=== PATIENT | female | born 1975 | race Two or more races ===

== ENCOUNTER 2024-06-01 13:00 | Outpatient (RCR) | payer MEDICAID, SELFPAY ==
--- NOTE | 2024-05-18 13:39 | PT.OIERPT ---
PT OP Initial Eval Patient Information Outpatient Physical Therapy Treatment Date: 05/18/24 Visit Reasons: Strain of unspecified muscles Medical Diagnosis: [id number] Treatment Dx #1: L knee pain Start of Care: 05/18/24 Date of Onset: 1 month ago Smoking Status Smoking Status: Never smoker Initial Assessment Subjective: Pt is 48 yr old aust[place]ian speaking female who c/o L LE pain behind the knee and thigh x1 month. She was moving boxes bent over in a lunge position and felt pain in the back of the knee after that. Now the pain limits HH chores such as stairs, mopping and sweeping and twisting the L LE with the foot planted. PMH: HTN, thyroidism, B ankle OA Pt goal: to get rid of the L LE pain Objective: L knee AROM: Flexion: 100 deg Extension: full with pain SLR: 30 deg Strength: Quads: 4-/5 HS: 4-/5 Gait: symmetrical Mainor's: negative Assessment: Pt presents with L knee rotation and extension sensitivity likely due to meniscus irritation. Pt requires skilled therapy in order to meet goals and has fair rehab potential. Short Term and Care Home Goals 1. Ind with HEP 2. Improved strength quads and HS to 4/5 3. Ascend/descend stairs 1 flight without L knee pain 3. Tolerate HH chores x30 mins with <=3/10 L knee pain Treatment Plan ? 1. Manual therapy ? 2. Therex ? 3. Modalities as indicated, moist heat, ice, estim Frequency and Duration: 1-2x a week for 6 sessions plus evaluation Certification Dates: 05/18/24 to 08/16/23 Procedure Charges OP PT Eval Mod Complex 30 minutes: Yes
--- NOTE | 2024-06-01 13:37 | PT.ODAYNRPT ---
PT Outpatient Daily Note OP Daily Note Outpatient Physical Therapy Treatment Date: 06/01/24 Visit Reasons: Strain of unspecified muscles Subjective: Pt reports L knee pain, mentioned she is still working and her job requires to be on her feet for most of her shift. Objective: Please see flow sheet for ther ex list. Assessment: Pt tolerated interventions with minimal pain, applied cold pack. Plan: Continue with POC. Length of Time (minutes) of Treatment: 30 Minutes Procedure Charges Therapeutic Exercise 30 minutes: Yes
== END 2024-06-02 23:59 | disposition home or self-care (01) ==
LOC: CPTX 13:00
PROVIDERS: PCP Family Medicine; Referring Provider Family Medicine; Visit Provider Family Medicine
DX: M25.562 Pain in left knee (principal); S86.912D Strain of unspecified muscle(s) and tendon(s) at lower leg level, left leg, subsequent encounter; X58.XXXD Exposure to other specified factors, subsequent encounter
CPT/HCPCS: 97110; 97162

== ENCOUNTER 2024-06-23 16:30 | Outpatient (RCR) | payer MEDICAID, SELFPAY ==
--- NOTE | 2024-06-08 17:49 | PT.ODAYNRPT ---
PT Outpatient Daily Note OP Daily Note Outpatient Physical Therapy Treatment Date: 06/08/24 Visit Reasons: Strain of unspecified muscles Subjective: Not much change in knee pain since last visit Objective: See F/S for therex Assessment: L knee pain with rotation consistent with meniscus irritation Plan: Continue as tolerated Length of Time (minutes) of Treatment: 30 Minutes Procedure Charges Therapeutic Exercise 30 minutes: Yes
--- NOTE | 2024-06-15 18:04 | PT.ODAYNRPT ---
PT Outpatient Daily Note OP Daily Note Outpatient Physical Therapy Treatment Date: 06/15/24 Visit Reasons: Strain of unspecified muscles Subjective: Not much change in knee pain since last visit Objective: See F/S for therex Assessment: L knee pain with rotation consistent with meniscus irritation Plan: Continue as tolerated Length of Time (minutes) of Treatment: 30 Minutes Procedure Charges Therapeutic Exercise 30 minutes: Yes
--- NOTE | 2024-06-23 17:42 | PT.ODAYNRPT ---
PT Outpatient Daily Note OP Daily Note Outpatient Physical Therapy Treatment Date: 06/23/24 Visit Reasons: Strain of unspecified muscles Subjective: Not much change in knee pain since last visit Objective: See F/S for therex Assessment: L knee pain with rotation consistent with meniscus irritation Plan: Continue as tolerated Length of Time (minutes) of Treatment: 30 Minutes Procedure Charges Therapeutic Exercise 30 minutes: Yes
== END 2024-07-03 23:59 | disposition home or self-care (01) ==
LOC: CPTX 16:30
PROVIDERS: PCP Family Medicine; Referring Provider Family Medicine; Visit Provider Family Medicine
DX: M25.562 Pain in left knee (principal); M79.652 Pain in left thigh; S86.912D Strain of unspecified muscle(s) and tendon(s) at lower leg level, left leg, subsequent encounter; X58.XXXD Exposure to other specified factors, subsequent encounter
CPT/HCPCS: 97110

== ENCOUNTER 2024-07-13 16:30 | Outpatient (RCR) | payer MEDICAID, SELFPAY ==
--- NOTE | 2024-07-07 08:57 | PT.ODAYNRPT ---
PT Outpatient Daily Note OP Daily Note Outpatient Physical Therapy Treatment Date: 07/06/24 Visit Reasons: Strain of unspecified of muscles Subjective: Not much change in knee pain since last visit Objective: See F/S for therex Assessment: L knee pain with rotation consistent with meniscus irritation Plan: Continue as tolerated Length of Time (minutes) of Treatment: 30 Minutes Procedure Charges Therapeutic Exercise 30 minutes: Yes
--- NOTE | 2024-07-13 18:15 | PT.ODS1RPT ---
PT OP Progress/Discharge Note Date of Service: 07/13/24 Progress Note/DC Note Progress Note/Discharge Note: DC Note Patient Information Visit Reasons: Strain of unspecified of muscles Service Continue Service or Discharge: Discharge Discharge Date: 07/13/24 Status Subjective: Less L knee pain since starting therapy but it still hurts on the back part sometimes Objective: See F/S for therex L knee strength: Quads: 4/5 HS: / Gait: symmetrical Assessment: Pt has attended 6/6 Rx sessions with good progress with goals. Pt has improved strength of L knee to meet that goal. Pt can tolerate HH chores not limited by pain. Pt can ascend/descend stairs 1 flight to meet that goal. She has pain with rotation consistent with meniscus irritation. Plan: D/C with HEP Procedure Charges Therapeutic Exercise 30 minutes: Yes
== END 2024-07-31 23:59 | disposition home or self-care (01) ==
LOC: CPTX 16:30
PROVIDERS: PCP Family Medicine; Referring Provider Family Medicine; Visit Provider Family Medicine
DX: M25.562 Pain in left knee (principal); S86.912D Strain of unspecified muscle(s) and tendon(s) at lower leg level, left leg, subsequent encounter; X58.XXXD Exposure to other specified factors, subsequent encounter; I10 Essential (primary) hypertension
CPT/HCPCS: 97110